=== PATIENT | female | born 1940 | race Caucasian/White ===

== ENCOUNTER 2017-01-06 14:07 | Emergency (ER) | payer MEDICARE, OTHER ==
--- NOTE | 2017-01-06 15:30 | EDM.PDOC ---
ED HPI GENERAL MEDICAL PROBLEM - General Time Seen by Provider: 01/06/17 15:00 Source of Information: Reports: Patient History Limitations: Reports: No Limitations - History of Present Illness INITIAL COMMENTS - FREE TEXT/NARRATIVE: Pt is a 76 year old female who is here in the emergency room. Apparently she was having a clinic appointment today. She was in the exam room and she felt lightheaded for just a short period of time, was for few seconds. No loss of consciousness. Not asso with nausea or vomiting, No chest pain or tightness. She felt better soon. It happened when she tilted her head backwards. Also patient claims that she has not eaten her lunch today, she ate some doughnuts . No fever or chills. No cough or SOB. Presently feels fine. Onset: Today Onset Date: 01/06/17 Onset Time: 13:00 Improves with: Reports: None Worsens with: Reports: None Associated Symptoms: Denies: Confusion, Chest Pain, Cough, Diaphoresis, Fever/ Chills, Headaches, Loss of Appetite, Nausea/Vomiting, Rash, Seizure, Shortness of Breath, Weakness - Related Data Allergies Allergy/AdvReac Type Severity Reaction Status Date / Time metronidazole [From Flagyl] Allergy Hives Verified 01/06/17 15:01 Home Meds: Home Meds Aspirin 81 mg PO BEDTIME 01/06/17 [History] Carbidopa/Levodopa [Carbidopa-Levodopa 25-250] 25 - 100 mg PO TID 01/06/17 [ History] Carvedilol 6.25 mg PO BID 01/06/17 [History] Simvastatin [Zocor] 10 mg PO BEDTIME 01/06/17 [History] amLODIPine [Norvasc] 2.5 mg PO DAILY 01/06/17 [History] ED ROS GENERAL - Review of Systems Review Of Systems: See Below Constitutional: Denies: Fever, Chills, Night Sweats HEENT: Denies: Eye Pain, Sinus Problem, Throat Pain, Throat Swelling Respiratory: Denies: Shortness of Breath, Wheezing, Cough, Sputum Cardiovascular: Reports: Lightheadedness. Denies: Chest Pain, Dyspnea on Exertion, Edema, Syncope GI/Abdominal: Reports: Abdominal Pain (Pt does have chronic lower abdominal pains and cramps), Constipation. Denies: Anorexia, Diarrhea, Difficulty Swallowing, Nausea, Vomiting : Denies: Dysuria, Flank Pain, Frequency Musculoskeletal: Denies: Joint Pain, Joint Swelling Skin: Denies: Jaundice, Pruritis, Rash ED EXAM, GENERAL - Physical Exam Exam: See Below Exam Limited By: No Limitations General Appearance: Alert, WD/WN, No Apparent Distress Eye Exam: Bilateral Eye: EOMI, PERRL Ears: Normal External Exam, Normal Canal, Hearing Grossly Normal, Normal TMs Ear Exam: Bilateral Ear: Auricle Normal, Canal Normal, TM normal Nose: Normal Inspection, Normal Mucosa, No Blood Throat/Mouth: Normal Inspection, Normal Lips, Normal Teeth, Normal Gums, Normal Oropharynx, Normal Voice, No Airway Compromise Head: Atraumatic, Normocephalic Neck: Normal Inspection, Supple, Non-Tender, Full Range of Motion Respiratory/Chest: No Respiratory Distress, Lungs Clear, Normal Breath Sounds, No Accessory Muscle Use, Chest Non-Tender Cardiovascular: Normal Peripheral Pulses, Regular Rate, Rhythm, No Edema, No Gallop, No JVD, No Murmur, No Rub Peripheral Pulses: 2+: Carotid (L), Carotid (R), Radial (L), Radial (R) GI/Abdominal: Normal Bowel Sounds, Soft, Non-Tender, No Organomegaly, No Distention, No Abnormal Bruit, No Mass Back Exam: Normal Inspection, Full Range of Motion, NT Extremities: Normal Inspection, Normal Range of Motion, Non-Tender, Normal Capillary Refill, No Pedal Edema Neurological: Alert, Oriented, CN II-XII Intact, Normal Cognition, Normal Gait, Normal Reflexes, No Motor/Sensory Deficits EKG INTERPRETATION EKG Date: 01/06/17 Rhythm: NSR Rate (beats/min): 57 [place]: normal P-wave: present QRS: normal ST-T: normal QT: normal Course - Vital Signs Text/Narrative:: Pt's EKG is normal with heart rate of 57. Her CBC and CMP are normal. Her vitals are stable in the emergency room. Her symptom of lightheadedness has not reoccurred. Pt reassured that she might have had a short few seconds episode of vasovagal episode which has resolved. Also she has not eaten any food since morning, might have felt weak from not having lunch. Her Blood sugar was 106 in the emergency room. Pt is feeling better. Pt also claims that she has had partial colectomy and since then she has been having lower abdominal cramps. She just had colonoscopy done in October 2016 which was normal.Possible recurrent cramping of abdominal could be the adhesions form surgery. I reassured patient, that there was no concern for acute cardiac or neurological concerns. Advised to rest and drink plenty of fluids. Return if symptoms reoccur or worsen, otherwise followup in clinic . - Orders/Labs/Meds Orders: Active Orders 24 hr Category Date Time Status EKG Documentation Completion [RC] ASDIRECTED Care 01/06/17 14:49 Active EKG Documentation Completion [RC] ASDIRECTED Care 01/06/17 14:50 Active Labs: Laboratory Tests 01/06/17 01/06/17 Range/Units 14:58 14:58 WBC 5.7 (4.0-11.0) K/uL RBC 4.55 (3.80-5.80) M/uL Hgb 13.6 (11.5-16.5) g/dL Hct 40.4 (37.0-47.0) % MCV 89 (76-96) fL MCH 29.9 (27.0-32.0) pg MCHC 33.7 (31.0-35.0) g/dL RDW 13.0 (11.0-16.0) % Plt Count 216 (150-500) K/uL MPV 9.3 (6.0-10.0) fL Neut % (Auto) 56.8 (45.0-70.0) % Lymph % (Auto) 32.1 (20.0-40.0) % [place] % (Auto) 7.8 (3.0-10.0) % Eos % (Auto) 2.6 (1.0-5.0) % Baso % (Auto) 0.7 H (0.0-0.5) % Neut # (Auto) 3.26 (2.00-7.50) K/uL Lymph # (Auto) 1.84 (1.50-4.00) K/uL [place] # (Auto) 0.45 (0.20-0.80) K/uL Eos # (Auto) 0.15 (0.04-0.40) K/uL Baso # (Auto) 0.04 (0.02-0.10) K/uL Sodium 143 (136-145) mmol/L Potassium 3.2 L (3.5-5.1) mmol/L Chloride 103 (98-107) mmol/L Carbon Dioxide 32.4 H (21.0-32.0) mmol/L Anion Gap 10.8 (5.0-15.0) mmol/L BUN 11 (8-26) mg/dL Creatinine 0.81 (0.55-1.02) mg/dL Est Cr Clr Drug Dosing TNP Estimated GFR (MDRD) > 60 (>60) MLS/MIN BUN/Creatinine Ratio 13.6 (6-25) Glucose 106 H (74-100) mg/dL Calcium 9.7 (8.5-10.1) mg/dL Total Bilirubin 0.9 (0.0-1.0) mg/dL AST 21 (15-37) U/L ALT 6 L (12-78) U/L Alkaline Phosphatase 62 (46-116) U/L Total Protein 7.5 (6.4-8.2) g/dL Albumin 3.8 (3.4-5.0) g/dL Globulin 3.7 (2.2-4.2) g/dL Albumin/Globulin Ratio 1.0 (0.8-2.0) Departure - Departure Time of Disposition: 15:45 Disposition: Home, Self-Care 01 Condition: good Clinical Impression: Vasovagal episode - Discharge Information Referrals: PCP,None [Primary Care Provider] - - Problem List & Annotations (1) Vasovagal episode SNOMED Code(s): 374529242 Code(s): R55 - SYNCOPE AND COLLAPSE Status: Acute Current Visit: Yes - Problem List Review Problem List Initiated/Reviewed/Updated: Yes - My Orders Last 24 Hours: My Active Orders 01/06/17 14:49 EKG Documentation Completion [RC] ASDIRECTED 01/06/17 14:50 EKG Documentation Completion [RC] ASDIRECTED - Assessment/Plan Last 24 Hours: My Active Orders 01/06/17 14:49 EKG Documentation Completion [RC] ASDIRECTED 01/06/17 14:50 EKG Documentation Completion [RC] ASDIRECTED Assessment:: Vasovagal episode Plan: Pt's EKG is normal with heart rate of 57. Her CBC and CMP are normal. Her vitals are stable in the emergency room. Her symptom of lightheadedness has not reoccurred. Pt reassured that she might have had a short few seconds episode of vasovagal episode which has resolved. Also she has not eaten any food since morning, might have felt weak from not having lunch. Her Blood sugar was 106 in the emergency room. Pt is feeling better. Pt also claims that she has had partial colectomy and since then she has been having lower abdominal cramps. She just had colonoscopy done in October 2016 which was normal.Possible recurrent cramping of abdominal could be the adhesions form surgery. I reassured patient, that there was no concern for acute cardiac or neurological concerns. Advised to rest and drink plenty of fluids. Return if symptoms reoccur or worsen, otherwise followup in clinic .
== END 2017-01-06 15:50 | disposition home or self-care (01) ==
LOC: LB.IVTHER 14:07 → LB.ED 14:07 → LB.IVTHER 15:50 → LB.ED 15:50
DX: R55 Syncope and collapse (principal); Z79.899 Other long term (current) drug therapy; Z88.1 Allergy status to other antibiotic agents
CPT/HCPCS: 36415; 80053; 85025; 93005; 99283; 99284-25

== ENCOUNTER 2017-03-22 15:15 | Emergency (ER) | payer MEDICARE, OTHER ==
[2017-03-22] MEDS ORDERED: Sodium Chloride 0.9% 1,000 ML IV SCH (16:00)
--- NOTE | 2017-03-22 16:17 | EDM.PDOC ---
ED HPI GENERAL MEDICAL PROBLEM - General Chief Complaint: General Stated Complaint: not feeling well Time Seen by Provider: 03/22/17 15:37 Source of Information: Reports: Patient, RN, Significant Other History Limitations: Reports: No Limitations - History of Present Illness INITIAL COMMENTS - FREE TEXT/NARRATIVE: This 77 yr female presents in no acute distress with upper GI pain and in general not feeling well. She has had some back pain for about 1 week and trying to get ready for some company. She tried some pepto-bismul and tums yesterday and some elle samantha today. Onset: Today Onset Date: 03/21/17 Location: Reports: Abdomen, Generalized Improves with: Reports: Medication (OTC) Treatments NEWSWRITER: Reports: Other (see below) Other Treatments NEWSWRITER: pepto bismol, tums epigastric Pain Score (Numeric/FACES): 4 - Related Data Allergies Allergy/AdvReac Type Severity Reaction Status Date / Time metronidazole [From Flagyl] Allergy Hives Verified 03/22/17 15:32 Home Meds: Home Meds Aspirin 81 mg PO BEDTIME 01/06/17 [History] Carbidopa/Levodopa [Carbidopa-Levodopa 25-250] 25 - 100 mg PO TID 01/06/17 [ History] Carvedilol 6.25 mg PO BID 01/06/17 [History] Simvastatin [Zocor] 10 mg PO BEDTIME 01/06/17 [History] ED ROS GENERAL - Review of Systems Review Of Systems: See Below HEENT: Reports: No Symptoms Respiratory: Reports: No Symptoms Cardiovascular: Reports: No Symptoms GI/Abdominal: Reports: Abdominal Pain, Other (loose stool). Denies: Black Stool , Bloody Stool Musculoskeletal: Reports: Back Pain Skin: Reports: No Symptoms Neurological: Reports: Weakness ED EXAM, GENERAL - Physical Exam Exam: See Below Exam Limited By: No Limitations General Appearance: Alert, WD/WN, No Apparent Distress Eye Exam: Bilateral Eye: PERRL Ears: Normal External Exam Nose: Normal Inspection Throat/Mouth: Normal Lips, Normal Voice Head: Atraumatic, Normocephalic Neck: Supple, Non-Tender Respiratory/Chest: No Respiratory Distress, Lungs Clear, Normal Breath Sounds Cardiovascular: Normal Peripheral Pulses, Regular Rate, Rhythm, No Edema, Bradycardia, Other (1st * AV block) GI/Abdominal: Soft, No Distention, No Mass, Other (sluggish bowel sounds) Back Exam: Paraspinal Tenderness Extremities: Normal Inspection, No Pedal Edema Neurological: Alert, Oriented, Normal Cognition Psychiatric: Normal Affect Skin Exam: Warm, Dry, Normal Color Course - Vital Signs Last Recorded V/S: Last Vital Signs Temp 98.2 F 03/22/17 15:24 Pulse 56 L 03/22/17 16:39 Resp 18 03/22/17 15:24 BP 167/82 H 03/22/17 16:39 Pulse Ox 97 03/22/17 16:39 - Orders/Labs/Meds Orders: Active Orders 24 hr Category Date Time Status EKG Documentation Completion [RC] ASDIRECTED Care 03/22/17 15:47 Active Labs: Laboratory Tests 03/22/17 03/22/17 Range/Units 15:55 15:55 WBC 5.1 (4.0-11.0) K/uL RBC 4.64 (3.80-5.80) M/uL Hgb 14.0 (11.5-16.5) g/dL Hct 41.0 (37.0-47.0) % MCV 88 (76-96) fL MCH 30.2 (27.0-32.0) pg MCHC 34.1 (31.0-35.0) g/dL RDW 13.2 (11.0-16.0) % Plt Count 231 (150-500) K/uL MPV 9.2 (6.0-10.0) fL Neut % (Auto) 60.2 (45.0-70.0) % Lymph % (Auto) 28.5 (20.0-40.0) % [place] % (Auto) 8.3 (3.0-10.0) % Eos % (Auto) 2.4 (1.0-5.0) % Baso % (Auto) 0.6 H (0.0-0.5) % Neut # (Auto) 3.06 (2.00-7.50) K/uL Lymph # (Auto) 1.45 L (1.50-4.00) K/uL [place] # (Auto) 0.42 (0.20-0.80) K/uL Eos # (Auto) 0.12 (0.04-0.40) K/uL Baso # (Auto) 0.03 (0.02-0.10) K/uL Sodium 141 (136-145) mmol/L Potassium 3.4 L (3.5-5.1) mmol/L Chloride 102 (98-107) mmol/L Carbon Dioxide 33.2 H (21.0-32.0) mmol/L Anion Gap 9.2 (5.0-15.0) mmol/L BUN 13 (8-26) mg/dL Creatinine 0.87 (0.55-1.02) mg/dL Est Cr Clr Drug Dosing 44.80 mL/min Estimated GFR (MDRD) > 60 (>60) MLS/MIN BUN/Creatinine Ratio 14.9 (6-25) Glucose 113 H (74-100) mg/dL Calcium 10.2 H (8.5-10.1) mg/dL Total Bilirubin 1.0 (0.0-1.0) mg/dL AST 21 (15-37) U/L ALT 10 L (12-78) U/L Alkaline Phosphatase 58 (46-116) U/L Troponin I < 0.017 (0.000-0.060) ng/mL Total Protein 8.3 H (6.4-8.2) g/dL Albumin 4.1 (3.4-5.0) g/dL Globulin 4.2 (2.2-4.2) g/dL Albumin/Globulin Ratio 1.0 (0.8-2.0) Meds: Medications Discontinued Medications Generic Name Dose Route Start Last Admin Trade Name Freq PRN Reason Stop Dose Admin Al Hydroxide/Mg Hydroxide 30 ml 03/22/17 16:39 03/22/17 16:41 Gi Cocktail PO 03/22/17 16:40 30 ml ONETIME ONE Administration Sodium Chloride 1,000 mls @ 100 mls/hr 03/22/17 16:00 03/22/17 15:59 Normal Saline IV 100 mls/hr ASDIRECTED [facility] Administration - Re-Assessments/Exams Free Text/Narrative Re-Assessment/Exam: Reviewed lab results with pt and . Results normal. EKG bradycardia with 1st degree AV block. GI cocktail for GI distress and IV fluid bolus 500 cc over 1 hour. Rx for Zantac 150mg PO bid. Decrease carvedilol to 3.125 mg PO bid and RTC in 1 week for follow-up. Pt and states understanding. 03/22/17 16:49 Departure - Departure Time of Disposition: 16:45 Disposition: Home, Self-Care 01 Condition: Good Clinical Impression: Upper gastrointestinal distress - Discharge Information Instructions: Indigestion, [id number], Bradycardia Referrals: PCP,None [Primary Care Provider] - Forms: ED Department Discharge Additional Instructions: Cut the Carvedilol 6.25mg in half and take it twice a day, then follow up in the clinic to have it rechecked. There is a prescription sent to the pharmacy for zantac, you can take this twice a day. You can make an appt in the clinic [phone] and see any provider you choose. - My Orders Last 24 Hours: My Active Orders 03/22/17 15:47 EKG Documentation Completion [RC] ASDIRECTED - Assessment/Plan Last 24 Hours: My Active Orders 03/22/17 15:47 EKG Documentation Completion [RC] ASDIRECTED
[2017-03-22] MEDS ORDERED: GI Cocktail Oral Solution 30 ML PO ONE (16:39)
[2017-03-22 16:40] VITALS: BP 167/82
== END 2017-03-22 17:40 | disposition home or self-care (01) ==
LOC: LB.ED 15:15
DX: K30 Functional dyspepsia (principal); Z88.8 Allergy status to other drugs, medicaments and biological substances; Z79.82 Long term (current) use of aspirin
CPT/HCPCS: 36415; 80053; 84484; 85025; 93005; 96360; 99284; A9270; J7040

== ENCOUNTER 2018-01-14 13:13 | Emergency (ER) | payer MEDICARE, OTHER ==
[2018-01-14] MEDS: Nitroglycerin 0.4 MG Tab.SL SL PRN ×2 (13:23→14:07)
[2018-01-14] MEDS ORDERED: Sodium Chloride 0.9% 10 ML Syringe FLUSH PRN (13:36)
[2018-01-14 16:25] VITALS: BP 168/69
--- NOTE | 2018-01-15 08:13 | CR ---
DATE OF SERVICE: 01/14/18 CLINICAL DATA: chest pain AP PORTABLE CHEST: No priors. The heart size is normal. The lungs are clear. No pneumothorax. No pleural effusions. No evidence of acute intrathoracic disease. [id number] [facility]
== END 2018-01-14 15:10 | disposition home or self-care (01) ==
LOC: LB.ED 13:13
DX: I20.0 Unstable angina (principal); I10 Essential (primary) hypertension
CPT/HCPCS: 36415; 71045; 80048; 84484; 85025; 93005; 99285; J7050; 99284